=== PATIENT | female | born 1970 | race African-American/Black ===

== ENCOUNTER 2022-05-21 09:03 | Inpatient (IN) | payer BC, MEDICAID ==
[~2022-05-21] VITALS: Ht 160 cm; Wt 44.2 kg
[2022-05-21] VITALS (17 sets, daily range): BP systolic 47–153; BP diastolic 19–86
[2022-05-21] MEDS ORDERED: SODIUM CHLORIDE 0.9% 1,000 ML IV ONE ×3 (09:45→13:30)
[2022-05-21 09:55] LABS: HEMATOCRIT. 57.9 % (36.0-48.0); HEMOGLOBIN. 17.2 g/dL (12.0-16.0); MEAN CORPUSCULAR VOLUME 107.9 fL (81.0-99.0); MEAN PLATELET VOLUME 9.5 fl (7.4-10.4); PLATELET 219 x1000/uL (130-400); RED BLOOD CELL COUNT 5.37 mill/uL (4.2-5.4); RED CELL DISTRIBUTION WIDTH 14.8 % (11.6-14.6)
[2022-05-21 10:20] LABS: HCG SCREEN NEGATIVE
[2022-05-21 11:34] LABS: PLATELET ESTIMATE NORMAL
[2022-05-21 12:09] LABS: CHLORIDE 110 mEq/L (98-107)
[2022-05-21 12:17] LABS: BETA HYDROXYBUTYRATE 8.7 mMol/L (0.0-0.3); ETHANOL BLOOD < 10 mg/dL
[2022-05-21 12:44] LABS: INR 1.1; PROTHROMBIN TIME 11.4 sec (9.6-11.0)
[2022-05-21] MEDS ORDERED: INSULIN REGULAR 100U/100ML PMX 100 ML IV NR ×2 (13:00)
[2022-05-21] MEDS ORDERED: CEFTRIAXONE 1 G PREMIX 50 ML IV NR (13:00)
[2022-05-21] MEDS ORDERED: AZITHROMYCIN 500MG/250ML 250 ML IV NR (13:00)
[2022-05-21 13:27] LABS: BG BASE EXCESS -29.1 mmol/L (-2.0-2.0); BG CARBOXYHEMOGLOBIN 0.8 % (0.5-1.5); BG DEOXYHEMOGLOBIN 2.9 % (0.0-5.0); BG FRACTION INSPIRED OXYGEN 21; BG HCO3 ACT 2.3 mmol/L (22.0-26.0); BG METHEMOGLOBIN 0.1 % (0.0-1.5); BG OXYGEN SATURATION 97.1 % (92.0-98.5); BG OXYHEMOGLOBIN 96.2 % (94.0-97.0); BG PCO2 11.7 mmHg (35.0-45.0); BG PO2 108.8 mmHg (75.0-100.0); BG SAMPLE SITE RIGHT RADIAL; BG TOTAL HEMOGLOBIN 15.6 g/dL (12.0-18.0); BG VENT MODE ROOM AIR
[2022-05-21] MEDS ORDERED: SODIUM BICARBONATE 8.4% 1 MEQ/ML 50ML SYR IV ONE (13:30)
[2022-05-21] MEDS ORDERED: SODIUM BICARBONATE 8.4% 1 MEQ/ML 50ML SYR IV NR ×2 (13:45→22:15)
[2022-05-21] MEDS ORDERED: INSULIN REGULAR (DRIP) 100 UNITS in SODIUM CHLORIDE 0.9% 99 ML IV ONE (14:00)
[2022-05-21] MEDS ORDERED: AZITHROMYCIN 500MG in DEXTROSE 5% WATER 250ML IV NR (14:00)
[2022-05-21] MEDS ORDERED: MAGNESIUM/ALUMINUM HYDROXIDE/SIMETHICONE 30ML UDC PO PRN (14:00)
[2022-05-21] MEDS ORDERED: CEFTRIAXONE 1 G PREMIX 50 ML IV SCH (14:00)
[2022-05-21] MEDS ORDERED: DIPHENHYDRAMINE 50MG/ML VIAL IV PRN (14:00)
[2022-05-21] MEDS ORDERED: ACETAMINOPHEN 325MG TABLET PO PRN ×2 (14:00)
[2022-05-21] MEDS ORDERED: ONDANSETRON HCL 4MG/2ML INJ IV PRN (14:00)
[2022-05-21] MEDS ORDERED: GUAIFENESIN 200MG/10ML SUGAR FREE UDC PO PRN (14:00)
[2022-05-21] MEDS ORDERED: DEXTROSE 50% WATER 50ML SYRINGE IV PRN (14:30)
[2022-05-21] MEDS ORDERED: BLOOD SUGAR DIAGNOSTIC STRIP TEST SCH (14:30)
[2022-05-21] MEDS ORDERED: INSULIN REGULAR (DRIP) 100 UNITS in SODIUM CHLORIDE 0.9% 99 ML IV PRN (16:00)
[2022-05-21] MEDS: BLOOD SUGAR DIAGNOSTIC STRIP TEST SCH ×7 (17:20→22:09)
[2022-05-21] MEDS: ENOXAPARIN 40MG/0.4ML SYR SUBCUT SCH (17:23)
[2022-05-21] MEDS: SODIUM CHLORIDE 0.9% 1,000 ML IV SCH ×3 (17:23→22:09)
[2022-05-21] MEDS ORDERED: INSULIN REGULAR (DRIP) 100 UNITS in SODIUM CHLORIDE 0.9% 99 ML IV SCH (19:00)
[2022-05-21] MEDS ORDERED: HYDR50SY PO (19:04)
[2022-05-21] MEDS ORDERED: ATOR40TA70 PO (19:04)
[2022-05-21] MEDS ORDERED: INSU100I32 SQ (19:04)
[2022-05-21] MEDS ORDERED: THIA50TA12 PO (19:04)
[2022-05-21] MEDS ORDERED: TOPUD PO (19:04)
[2022-05-21] MEDS ORDERED: INSULIN REGULAR 100U/100ML PMX 100 ML IV SCH (20:00)
[2022-05-21 20:31] LABS: CHLORIDE 122 mEq/L (98-107)
[2022-05-21 20:37] LABS: PHOSPHORUS 1.5 mg/dL (2.5-4.9)
[2022-05-21] MEDS ORDERED: POTASSIUM CHLORIDE INJ 40 MEQ in DEXT 5% WATER 250 ML IV ONE (22:15)
[2022-05-21] MEDS: DEXT 5%/0.45% NACL 500ML 1,000 ML IV SCH (23:08)
[2022-05-21] MEDS ORDERED: MAGNESIUM 2 G PREMIX 50 ML IV NR (23:33)
[2022-05-22] VITALS (43 sets, daily range): BP systolic 96–152; BP diastolic 22–93
[2022-05-22] MEDS: BLOOD SUGAR DIAGNOSTIC STRIP TEST SCH ×6 (00:10→23:00)
[2022-05-22] MEDS ORDERED: POTASSIUM PHOS,M-BASIC-D-BASIC 30 MMOL in SODIUM CHLORIDE 0.9% 500 ML IV NR (01:00)
[2022-05-22] MEDS: KCL 20MEQ/100ML X 2 FOR TOTAL KCL 40MEQ/200ML IV SCH ×2 (01:01→03:00)
[2022-05-22] MEDS ORDERED: BLOOD SUGAR DIAGNOSTIC STRIP TEST SCH ×2 (04:00→10:00)
[2022-05-22] MEDS ORDERED: LORAZEPAM 2MG/ML CPJ IV PRN (04:45)
[2022-05-22] MEDS: DEXT 5%/0.45% NACL 500ML 1,000 ML IV SCH (05:40)
[2022-05-22] MEDS ORDERED: PNEUMOCOCCAL 23-VAL P-SAC VAC 0.5 ML IM ONE (09:00)
[2022-05-22 09:19] LABS: HEMATOCRIT. 40.8 % (36.0-48.0); HEMOGLOBIN. 14.5 g/dL (12.0-16.0); MEAN CORPUSCULAR HEMOGLOBIN 32.5 pg (28.0-32.0); MEAN CORPUSCULAR VOLUME 91.5 fL (81.0-99.0); MEAN PLATELET VOLUME 9.2 fl (7.4-10.4); PLATELET 149 x1000/uL (130-400); RED BLOOD CELL COUNT 4.46 mill/uL (4.2-5.4)
[2022-05-22] MEDS: PANTOPRAZOLE SODIUM 40 MG/VIAL IV SCH (09:25)
[2022-05-22 09:29] LABS: CHLORIDE 122 mEq/L (98-107)
[2022-05-22 10:04] LABS: PHOSPHORUS 0.9 mg/dL (2.5-4.9)
[2022-05-22 10:37] LABS: PLATELET ESTIMATE NORMAL
[2022-05-22 11:52] LABS: BG BASE EXCESS -8.6 mmol/L (-2.0-2.0); BG CARBOXYHEMOGLOBIN 1.1 % (0.5-1.5); BG DEOXYHEMOGLOBIN 10.6 % (0.0-5.0); BG FRACTION INSPIRED OXYGEN 36; BG HCO3 ACT 13.6 mmol/L (22.0-26.0); BG METHEMOGLOBIN 0.1 % (0.0-1.5); BG OXYGEN SATURATION 89.3 % (92.0-98.5); BG OXYHEMOGLOBIN 88.2 % (94.0-97.0); BG PCO2 21.7 mmHg (35.0-45.0); BG PH 7.415 (7.350-7.450); BG PO2 47.7 mmHg (75.0-100.0); BG SAMPLE SITE RIGHT BRACHIAL; BG TOTAL HEMOGLOBIN 14.2 g/dL (12.0-18.0); BG VENT MODE NASAL CANNULA
[2022-05-22] MEDS ORDERED: DEXT 5%/0.45% NACL KCL 40MEQ/L 1,000 ML IV SCH (13:00)
[2022-05-22] MEDS ORDERED: POTASSIUM PHOS,M-BASIC-D-BASIC 30 MMOL in DEXT 5% WATER 500 ML IV SCH (13:00)
[2022-05-22] MEDS: CEFTRIAXONE 1,000 MG in DEXTROSE 5% WATER 50 ML IV SCH (13:28)
[2022-05-22] MEDS: KCL 20MEQ/100ML PREMIX 100 ML IV SCH ×2 (13:28→16:16)
[2022-05-22] MEDS ORDERED: DEXTROSE 50% WATER 50ML SYRINGE IV PRN (14:00)
[2022-05-22] MEDS ORDERED: IPRATROPIUM BROMIDE (0.02%) 0.5MG/2.5ML NEB HHN PRN ×2 (14:00→15:45)
[2022-05-22] MEDS ORDERED: ALBUTEROL (0.083%) 2.5MG/3ML NEB HHN PRN (15:45)
[2022-05-22] MEDS ORDERED: IPRATROPIUM/ALBUTEROL 0.5-3(2.5)MG/3ML NEB HHN PRN (15:45)
[2022-05-22] MEDS: ENOXAPARIN 40MG/0.4ML SYR SUBCUT SCH (16:17)
[2022-05-22] MEDS: AZITHROMYCIN 500 MG in DEXT 5% WATER 250 ML IV SCH (17:27)
[2022-05-22] MEDS ORDERED: IPRATROPIUM BROMIDE (0.02%) 0.5MG/2.5ML NEB HHN SCH (18:00)
[2022-05-22] MEDS ORDERED: ALBUTEROL (0.083%) 2.5MG/3ML NEB HHN SCH (18:00)
[2022-05-22 18:45] LABS: CLARITY URINE CLOUDY (CLEAR); COLOR URINE YELLOW (YELLOW); KETONES URINE 2+ (NEGATIVE); LEUKOCYTE ESTERASE URINE TRACE (NEGATIVE); NITRITE URINE NEGATIVE (NEGATIVE); OCCULT BLOOD URINE 2+ (NEGATIVE); PROTEIN URINE TRACE (NEGATIVE); SPECIFIC GRAVITY URINE 1.013 (1.005-1.030); UROBILINOGEN URINE 0.2 E.U./dL (0.2-1.0)
[2022-05-22 18:54] LABS: *AMPHETAMINES SCREEN URINE NEGATIVE (NEGATIVE); *BARBITURATES SCREEN URINE NEGATIVE (NEGATIVE); *BENZODIAZEPINES SCREEN URINE NEGATIVE (NEGATIVE); *COCAINE SCREEN URINE NEGATIVE (NEGATIVE); METHADONE URINE SCREEN NEGATIVE (NEGATIVE); OPIATES URINE SCREEN NEGATIVE (NEGATIVE); PHENCYCLIDINE URINE SCREEN NEGATIVE (NEGATIVE)
[2022-05-22 18:58] LABS: CANNABINOID URINE SCREEN PRESUMTIVE POSITIVE (NEGATIVE)
[2022-05-22] MEDS: INSULIN LISPRO 100 UNITS/ML SUBCUT SCH ×2 (19:36→21:00)
[2022-05-22] MEDS ORDERED: IOHEXOL-350 100 ML BOTTLE ONE (20:03)
[2022-05-22 20:49] LABS: CHLORIDE 115 mEq/L (98-107)
[2022-05-22 20:57] LABS: PHOSPHORUS 3.5 mg/dL (2.5-4.9)
[2022-05-22 21:19] LABS: BG BASE EXCESS -16.3 mmol/L (-2.0-2.0); BG CARBOXYHEMOGLOBIN 0.4 % (0.5-1.5); BG DEOXYHEMOGLOBIN 0.7 % (0.0-5.0); BG FRACTION INSPIRED OXYGEN 100; BG HCO3 ACT 8.7 mmol/L (22.0-26.0); BG METHEMOGLOBIN 0.2 % (0.0-1.5); BG OXYGEN SATURATION 99.3 % (92.0-98.5); BG OXYHEMOGLOBIN 98.7 % (94.0-97.0); BG PCO2 20.5 mmHg (35.0-45.0); BG PH 7.247 (7.350-7.450); BG PO2 499.8 mmHg (75.0-100.0); BG SAMPLE SITE RIGHT RADIAL; BG VENT MODE MASK - BIPAP
[2022-05-22] MEDS ORDERED: INSULIN GLARGINE 100 UNITS/ML SUBCUT SCH (22:00)
[2022-05-22] MEDS: DEXT 5%/0.45% NACL KCL 40MEQ/L 1,000 ML IV SCH (22:42)
[2022-05-22] MEDS: INSULIN REGULAR (DRIP) 100 UNITS in SODIUM CHLORIDE 0.9% 99 ML IV PRN (22:51)
[2022-05-22] MEDS: KCL 20MEQ/100ML PREMIX 100 ML IV NR (22:51)
[2022-05-23] VITALS (45 sets, daily range): BP systolic 84–117; BP diastolic 52–82
[2022-05-23] MEDS: BLOOD SUGAR DIAGNOSTIC STRIP TEST SCH ×16 (01:00→18:46)
[2022-05-23] MEDS: KCL 20MEQ/100ML PREMIX 100 ML IV NR (01:09)
[2022-05-23 05:29] LABS: BASOPHILS % 0.1 % (0.0-2.0); EOSINOPHILS % 0.1 % (0.0-5.0); HEMATOCRIT. 38.3 % (36.0-48.0); HEMOGLOBIN. 13.2 g/dL (12.0-16.0); LYMPHOCYTES % 7.4 % (20.0-50.0); MEAN CORPUSCULAR HEMOGLOBIN 31.9 pg (28.0-32.0); MEAN CORPUSCULAR VOLUME 92.5 fL (81.0-99.0); MEAN PLATELET VOLUME 9.2 fl (7.4-10.4); MONOCYTES % 7.1 % (2.0-8.0); NEUTROPHILS % 85.3 % (40.0-76.0); PLATELET 120 x1000/uL (130-400); RED BLOOD CELL COUNT 4.14 mill/uL (4.2-5.4); RED CELL DISTRIBUTION WIDTH 13.2 % (11.6-14.6)
[2022-05-23 05:41] LABS: CHLORIDE 124 mEq/L (98-107)
[2022-05-23 06:21] LABS: PHOSPHORUS 1.2 mg/dL (2.5-4.9)
[2022-05-23] MEDS: DEXT 5%/0.45% NACL KCL 40MEQ/L 1,000 ML IV SCH ×2 (08:37→19:31)
[2022-05-23] MEDS: PANTOPRAZOLE SODIUM 40 MG/VIAL IV SCH (08:37)
[2022-05-23 08:45] LABS: BG BASE EXCESS -7.2 mmol/L (-2.0-2.0); BG CARBOXYHEMOGLOBIN 0.7 % (0.5-1.5); BG DEOXYHEMOGLOBIN 2.7 % (0.0-5.0); BG FRACTION INSPIRED OXYGEN 80; BG OXYGEN SATURATION 97.3 % (92.0-98.5); BG OXYHEMOGLOBIN 96.6 % (94.0-97.0); BG PCO2 22.8 mmHg (35.0-45.0); BG PH 7.436 (7.350-7.450); BG PO2 91.1 mmHg (75.0-100.0); BG SAMPLE SITE RIGHT RADIAL; BG TOTAL HEMOGLOBIN 13.5 g/dL (12.0-18.0); BG VENT MODE MASK - NRB-PARTIAL
[2022-05-23] MEDS: IPRATROPIUM/ALBUTEROL 0.5-3(2.5)MG/3ML NEB HHN SCH ×3 (08:47→20:24)
[2022-05-23] MEDS ORDERED: POTASSIUM PHOS,M-BASIC-D-BASIC 30 MMOL in DEXT 5% WATER 500 ML IV NR (11:00)
[2022-05-23] MEDS: CEFTRIAXONE 1,000 MG in DEXTROSE 5% WATER 50 ML IV SCH (12:01)
[2022-05-23] MEDS ORDERED: ENOXAPARIN 30MG/0.3ML SYR SUBCUT SCH (16:00)
[2022-05-23 17:12] LABS: CHLORIDE 121 mEq/L (98-107)
[2022-05-23] MEDS: AZITHROMYCIN 500 MG in DEXT 5% WATER 250 ML IV SCH (17:18)
[2022-05-23 21:35] LABS: CHLORIDE 114 mEq/L (98-107)
[2022-05-24] VITALS (52 sets, daily range): BP systolic 63–115; BP diastolic 28–72
[2022-05-24] MEDS: BLOOD SUGAR DIAGNOSTIC STRIP TEST SCH ×11 (00:26→23:05)
[2022-05-24] MEDS: IPRATROPIUM/ALBUTEROL 0.5-3(2.5)MG/3ML NEB HHN SCH ×4 (01:44→21:25)
[2022-05-24] MEDS: DEXT 5%/0.45% NACL KCL 40MEQ/L 1,000 ML IV SCH ×2 (04:15→14:15)
[2022-05-24] MEDS: INSULIN REGULAR (DRIP) 100 UNITS in SODIUM CHLORIDE 0.9% 99 ML IV PRN (06:07)
[2022-05-24 06:26] LABS: BASOPHILS % 0.2 % (0.0-2.0); EOSINOPHILS % 0.6 % (0.0-5.0); HEMATOCRIT. 39.6 % (36.0-48.0); MEAN CORPUSCULAR HEMOGLOBIN 31.4 pg (28.0-32.0); MEAN CORPUSCULAR VOLUME 95.8 fL (81.0-99.0); MONOCYTES % 5.9 % (2.0-8.0); NEUTROPHILS % 81.3 % (40.0-76.0); PLATELET 98 x1000/uL (130-400); RED BLOOD CELL COUNT 4.13 mill/uL (4.2-5.4); RED CELL DISTRIBUTION WIDTH 13.7 % (11.6-14.6)
[2022-05-24 06:33] LABS: CHLORIDE 113 mEq/L (98-107)
[2022-05-24 06:41] LABS: PHOSPHORUS 1.2 mg/dL (2.5-4.9)
[2022-05-24] MEDS: PANTOPRAZOLE SODIUM 40 MG/VIAL IV SCH (09:23)
[2022-05-24] MEDS ORDERED: INSULIN REGULAR 100U/100ML PMX 100 ML IV SCH (10:30)
[2022-05-24] MEDS ORDERED: MAGNESIUM 2 G PREMIX 50 ML IV NR (11:00)
[2022-05-24] MEDS: CEFTRIAXONE 1,000 MG in DEXTROSE 5% WATER 50 ML IV SCH (11:55)
[2022-05-24] MEDS ORDERED: POTASSIUM PHOS,M-BASIC-D-BASIC 30 MMOL in DEXT 5% WATER 500 ML IV NR (12:00)
[2022-05-24] MEDS ORDERED: DEXTROSE 50% WATER 50ML SYRINGE IV PRN (14:30)
[2022-05-24] MEDS: INSULIN GLARGINE 100 UNITS/ML SUBCUT SCH (15:25)
[2022-05-24] MEDS: INSULIN LISPRO 100 UNITS/ML SUBCUT SCH ×3 (15:26→23:08)
[2022-05-24] MEDS: AZITHROMYCIN 500 MG in DEXT 5% WATER 250 ML IV SCH (18:10)
[2022-05-24] MEDS ORDERED: SODIUM CHLORIDE 0.9% 500 ML IV ONE (20:15)
[2022-05-24] MEDS: SODIUM CHLORIDE 0.9% 1,000 ML IV SCH (20:32)
[2022-05-24] MEDS ORDERED: MIDODRINE HCL 5MG TABLET PO SCH (21:30)
[2022-05-24] MEDS: OMEPRAZOLE 20MG CAPSULE EXTENDED RELEASE PO SCH (21:44)
[2022-05-24] MEDS: MIDODRINE HCL 5MG TABLET PO SCH (21:45)
[2022-05-25] VITALS (46 sets, daily range): BP systolic 83–135; BP diastolic 42–96
[2022-05-25] MEDS: INSULIN LISPRO 100 UNITS/ML SUBCUT SCH ×6 (02:30→22:30)
[2022-05-25] MEDS: BLOOD SUGAR DIAGNOSTIC STRIP TEST SCH ×6 (02:52→22:30)
[2022-05-25] MEDS: IPRATROPIUM/ALBUTEROL 0.5-3(2.5)MG/3ML NEB HHN SCH ×4 (03:10→20:33)
[2022-05-25 06:17] LABS: BASOPHILS % 0.3 % (0.0-2.0); HEMATOCRIT. 38.6 % (36.0-48.0); LYMPHOCYTES % 18.5 % (20.0-50.0); MEAN CORPUSCULAR VOLUME 94.7 fL (81.0-99.0); MONOCYTES % 10.3 % (2.0-8.0); NEUTROPHILS % 68.9 % (40.0-76.0); RED BLOOD CELL COUNT 4.08 mill/uL (4.2-5.4); RED CELL DISTRIBUTION WIDTH 13.6 % (11.6-14.6)
[2022-05-25] MEDS: SODIUM CHLORIDE 0.9% 1,000 ML IV SCH ×2 (06:23→17:19)
[2022-05-25 06:28] LABS: CHLORIDE 112 mEq/L (98-107)
[2022-05-25 06:38] LABS: PHOSPHORUS 3.1 mg/dL (2.5-4.9)
[2022-05-25] MEDS: OMEPRAZOLE 20MG CAPSULE EXTENDED RELEASE PO SCH ×2 (08:29→21:23)
[2022-05-25] MEDS: MIDODRINE HCL 5MG TABLET PO SCH ×3 (08:29→17:19)
[2022-05-25] MEDS ORDERED: MIDODRINE HCL 5MG TABLET PO SCH (09:00)
[2022-05-25 09:20] LABS: MEAN PLATELET VOLUME 9.6 fl (7.4-10.4); PLATELET 93 x1000/uL (130-400)
[2022-05-25] MEDS: INSULIN GLARGINE 100 UNITS/ML SUBCUT SCH (10:32)
[2022-05-25] MEDS: CEFTRIAXONE 1,000 MG in DEXTROSE 5% WATER 50 ML IV SCH (14:45)
[2022-05-25] MEDS ORDERED: DIGOXIN 500MCG/2ML AMP IV NR (15:45)
[2022-05-25] MEDS ORDERED: NALOXONE HCL 0.4MG/ML VIAL IV PRN (16:00)
[2022-05-25] MEDS: TRAMADOL 50MG TABLET PO PRN (17:19)
[2022-05-25] MEDS: AZITHROMYCIN 500 MG in DEXT 5% WATER 250 ML IV SCH (17:22)
[2022-05-26] VITALS (23 sets, daily range): BP systolic 82–147; BP diastolic 44–84
[2022-05-26] MEDS: IPRATROPIUM/ALBUTEROL 0.5-3(2.5)MG/3ML NEB HHN SCH ×3 (01:58→14:59)
[2022-05-26] MEDS: BLOOD SUGAR DIAGNOSTIC STRIP TEST SCH ×6 (02:30→20:21)
[2022-05-26] MEDS: INSULIN LISPRO 100 UNITS/ML SUBCUT SCH ×6 (02:30→20:21)
[2022-05-26] MEDS: SODIUM CHLORIDE 0.9% 1,000 ML IV SCH ×3 (02:58→20:46)
[2022-05-26 06:03] LABS: CHLORIDE 113 mEq/L (98-107)
[2022-05-26 06:14] LABS: PHOSPHORUS 3.7 mg/dL (2.5-4.9)
[2022-05-26] MEDS: MIDODRINE HCL 5MG TABLET PO SCH ×2 (09:00→13:00)
[2022-05-26] MEDS: OMEPRAZOLE 20MG CAPSULE EXTENDED RELEASE PO SCH ×2 (09:00→20:41)
[2022-05-26] MEDS: TRAMADOL 50MG TABLET PO PRN ×2 (10:46→20:41)
[2022-05-26] MEDS: INSULIN GLARGINE 100 UNITS/ML SUBCUT SCH (10:46)
[2022-05-26] MEDS: CEFTRIAXONE 1,000 MG in DEXTROSE 5% WATER 50 ML IV SCH (14:16)
[2022-05-26] MEDS: METOPROLOL TARTRATE 25MG TABLET PO SCH ×3 (14:42→20:41)
[2022-05-26] MEDS ORDERED: IPRATROPIUM BROMIDE (0.02%) 0.5MG/2.5ML NEB HHN PRN (16:30)
[2022-05-26] MEDS ORDERED: ALBUTEROL (0.083%) 2.5MG/3ML NEB HHN PRN (16:30)
[2022-05-26] MEDS ORDERED: AZITHROMYCIN 500 MG TABLET PO SCH (17:00)
[2022-05-26] MEDS: IPRATROPIUM BROMIDE (0.02%) 0.5MG/2.5ML NEB HHN SCH (20:58)
[2022-05-26] MEDS: ALBUTEROL (0.083%) 2.5MG/3ML NEB HHN SCH (20:58)
[2022-05-27] VITALS (8 sets, daily range): BP systolic 95–146; BP diastolic 57–80
[2022-05-27] MEDS: ALBUTEROL (0.083%) 2.5MG/3ML NEB HHN SCH ×3 (01:52→14:40)
[2022-05-27] MEDS: IPRATROPIUM BROMIDE (0.02%) 0.5MG/2.5ML NEB HHN SCH ×3 (01:53→14:40)
[2022-05-27] MEDS: OMEPRAZOLE 20MG CAPSULE EXTENDED RELEASE PO SCH (05:44)
[2022-05-27] MEDS: BLOOD SUGAR DIAGNOSTIC STRIP TEST SCH ×3 (06:34→16:05)
[2022-05-27] MEDS: INSULIN LISPRO 100 UNITS/ML SUBCUT SCH ×3 (07:10→16:51)
[2022-05-27] MEDS: INSULIN GLARGINE 100 UNITS/ML SUBCUT SCH ×2 (09:12→11:22)
[2022-05-27] MEDS: SODIUM CHLORIDE 0.9% 1,000 ML IV SCH ×2 (09:23→17:33)
[2022-05-27] MEDS: METOPROLOL TARTRATE 25MG TABLET PO SCH (09:23)
[2022-05-27] MEDS: TRAMADOL 50MG TABLET PO PRN (09:28)
[2022-05-27 09:49] LABS: BG BASE EXCESS -0.4 mmol/L (-2.0-2.0); BG CARBOXYHEMOGLOBIN 0.9 % (0.5-1.5); BG DEOXYHEMOGLOBIN 3.2 % (0.0-5.0); BG FRACTION INSPIRED OXYGEN 21; BG HCO3 ACT 22.7 mmol/L (22.0-26.0); BG OXYGEN SATURATION 96.8 % (92.0-98.5); BG OXYHEMOGLOBIN 95.9 % (94.0-97.0); BG PCO2 32.6 mmHg (35.0-45.0); BG PH 7.461 (7.350-7.450); BG PO2 90.1 mmHg (75.0-100.0); BG SAMPLE SITE RIGHT RADIAL; BG TOTAL HEMOGLOBIN 13.1 g/dL (12.0-18.0); BG VENT MODE ROOM AIR
== END 2022-05-27 20:30 | disposition home or self-care (01) | DRG 871 ==
LOC: ER 09:03 → MICUSO 12:24 → EDBEDREQ 12:27 → EDBEDREQTM 12:27 → EDBEDREQSVC 12:27 → CVICU 15:48 → 5EST 05-24 18:44 → CVICU 05-24 19:00 → 7EST 05-26 11:07
PROVIDERS: ADMIT Internal Medicine; ATTEND Internal Medicine
PROC: 02HV33Z Insertion of Infusion Device into Superior Vena Cava, Percutaneous Approach (ICD-10-PCS; principal; 2022-05-22)
PROC: B548ZZA Ultrasonography of Superior Vena Cava, Guidance (ICD-10-PCS; 2022-05-22)
PROC: 5A09357 Assistance with Respiratory Ventilation, Less than 24 Consecutive Hours, Continuous Positive Airway Pressure (ICD-10-PCS; 2022-05-22)
DX: A41.9 Sepsis, unspecified organism (principal); E11.10 Type 2 diabetes mellitus with ketoacidosis without coma; J96.01 Acute respiratory failure with hypoxia; G93.41 Metabolic encephalopathy; J69.0 Pneumonitis due to inhalation of food and vomit; E46 Unspecified protein-calorie malnutrition; N17.9 Acute kidney failure, unspecified; Z68.1 Body mass index [BMI] 19.9 or less, adult; E87.5 Hyperkalemia; E11.65 Type 2 diabetes mellitus with hyperglycemia; Z20.822 Contact with and (suspected) exposure to COVID-19; E78.5 Hyperlipidemia, unspecified; E83.39 Other disorders of phosphorus metabolism; E83.42 Hypomagnesemia; E87.6 Hypokalemia; F41.9 Anxiety disorder, unspecified; I10 Essential (primary) hypertension; Z79.4 Long term (current) use of insulin
CPT/HCPCS: 36415; 36573; 36600; 71045; 71275; 80048; 80053; 80305; 80320; 81003; 82010; 82375; 82805; 82962; 83036; 83605; 83735; 84100; 84484; 84703; 85025; 85379; 87426; 87804; 93005; 93306; 93970; 94640; 94660; 97162; 99291; C1725; C9113; J0456; J0696; J1160; J1650; J1815; J2060; J3475; J3480; J3490; J7030; J7040; J7050; J7060; Q9967; G0480